=== PATIENT | male | born 1995 | race Hispanic/Latino ===

== ENCOUNTER 2018-07-24 22:19 | Emergency (ER) | payer SELFPAY ==
[2018-07-24] MEDS ORDERED: Sodium Chloride 0.9% 1,000 ML IV ONE (22:49)
[2018-07-24] MEDS ORDERED: Sodium Chloride 0.9% 1,000 ML ONE (23:22)
[2018-07-24 23:25] LABS: BASO % 0.1 % (0.0-2.0); EOS % 0.2 % (0.0-4.0); HEMOGLOBIN 16.7 g/dL (12.0-18.0); LYMPH # 0.6 K/uL (1.0-4.3); LYMPH % 4.7 % (20.0-40.0); MEAN CELL VOLUME 91.1 fL (80.0-94.0); MEAN CORPUSCULAR HEMOGLOBIN 30.6 pg (27.0-31.0); MEAN CORPUSCULAR HGB CONC 33.6 g/dL (33.0-37.0); MEAN PLATELET VOLUME 8.8 fL (7.2-11.7); MONO # 0.6 K/uL (0.0-0.8); MONO % 5.2 % (0.0-10.0); NEUT # 11.1 K/uL (1.8-7.0); NEUT % 89.8 % (50.0-75.0); PLATELET COUNT 217 K/uL (130-400); RBC 5.47 Mil/uL (4.40-5.90); RED CELL DISTRIBUTION WIDTH 13.8 % (11.5-14.5); WHITE BLOOD COUNT 12.4 K/uL (4.8-10.8)
[2018-07-24 23:36] LABS: ALBUMIN 5.1 g/dL (3.5-5.0); ALT/SGPT 31 U/L (21-72); AST/SGOT 26 U/L (17-59); BLOOD UREA NITROGEN 19 mg/dL (9-20); CALCIUM 9.5 mg/dl (8.6-10.4); GFR NON-AFRICAN AMERICAN > 60; LIPASE 68 U/L (23-300)
[2018-07-24 23:52] LABS: BANDS 4 % (0-2); LYMPHOCYTE 9 % (20-40); MONOCYTE 3 % (0-10); NEUTROPHIL 84 % (50-75); TOTAL CELLS COUNTED 100
[2018-07-24 23:53] LABS: PLATELET ESTIMATE NORMAL (NORMAL)
[2018-07-25 00:39] VITALS: BP 111/71; PULSE 103; RESP 20; TEMP 99.8; O2SAT 97
--- NOTE | 2018-07-25 00:54 | C.PDOC ---
History Of Present Illness 23 year old male presents to the ER with a complaint of several episodes of watery stools and vomiting since this morning. Patient states he was on a keto diet for a week and stopped 2 days ago, he had a large fierro meal at a [employer] restaurant and woke up with the symptoms. Patient reports now feeling weak and lightheaded. Denies fever, sick contact, or recent travel. Time Seen by Provider: 07/24/18 22:47 Chief Complaint (Nursing): Abdominal Pain History Per: Patient History/Exam Limitations: no limitations Onset/Duration Of Symptoms: Hrs Current Symptoms Are (Timing): Still Present Radiation Of Pain To:: None Quality Of Discomfort: Unable To Describe Associated Symptoms: Vomiting, Diarrhea, Other (Weak, Lightheaded). denies: Fever Exacerbating Factors: None Alleviating Factors: None Recent travel outside of the [place]: No Past Medical History Reviewed: Historical Data, Nursing Documentation, Vital Signs Vital Signs: Last Vital Signs Temp 99.8 F H 07/25/18 00:38 Pulse 103 H 07/25/18 00:38 Resp 20 07/25/18 00:38 BP 111/71 07/25/18 00:38 Pulse Ox 97 07/25/18 00:38 Family History: States: Unknown Family Hx - Social History Hx Alcohol Use: Yes Hx Substance Use: No Review Of Systems Constitutional: Positive for: Weakness. Negative for: Fever Cardiovascular: Positive for: Light Headedness Respiratory: Negative for: Cough Gastrointestinal: Positive for: Vomiting, Diarrhea Physical Exam - Physical Exam Appears: Non-toxic Skin: Pale Head: Atraumatic, Normacephalic Eye(s): bilateral: Normal Inspection Oral Mucosa: Moist Neck: Normal, Supple Chest: Symmetrical, No Tenderness Cardiovascular: Rhythm Regular (Tachycardic) Respiratory: Normal Breath Sounds, No Rales, No Rhonchi, No Wheezing Gastrointestinal/Abdominal: Soft, No Tenderness, No Distention, No Guarding, No Rebound Neurological/Psych: Oriented x3, Normal Speech ED Course And Treatment - Laboratory Results Result Diagrams: 07/24/18 23:22 07/24/18 23:22 Lab Results: Total Bilirubin 1.2 mg/dL (0.2-1.3) 07/24/18 23:22 AST 26 U/L (17-59) 07/24/18 23:22 ALT 31 U/L (21-72) 07/24/18 23:22 Alkaline Phosphatase 70 U/L (38-126) 07/24/18 23:22 Total Protein 7.5 g/dL (6.3-8.3) 07/24/18 23:22 Albumin 5.1 g/dL (3.5-5.0) H 07/24/18 23:22 Globulin 2.5 gm/dL (2.2-3.9) 07/24/18 23:22 Albumin/Globulin Ratio 2.0 (1.0-2.1) 07/24/18 23:22 Lipase 68 U/L (23-300) 07/24/18 23:22 O2 Sat by Pulse Oximetry: 97 (Room air) Pulse Ox Interpretation: Normal Progress Note: Blood work ordered, results were negative. IV fluids and zofran administered. On reevaluation, patient is resting comfortably in the ER in no acute distress, tolerating PO, vitals are stable, will discharge home with Rx and instructions to follow up with PMD. Disposition Counseled Patient/Family Regarding: Diagnosis, Need For Followup - Disposition Disposition: HOME/ ROUTINE Disposition Time: 00:52 Condition: STABLE Additional Instructions: Increase PO fluids Take zofran for nausra or vomitingBRAT diet( white bread, rice, bananas, apple, apple sauce, soup, broth , tea, jello) Take medications as directed Return to ER if high fever, severe pain, persistent vomiting, bloody stools or worse Prescriptions: Ondansetron ODT [Zofran ODT] 1 odt PO BID PRN #6 odt PRN Reason: Nausea/Vomiting Instructions: Gastritis (DC) Forms: [employer] ([place]) - Clinical Impression Clinical Impression: Gastroenteritis - PA / COMPENSATION DIRECTOR / Resident Statement MD/DO has reviewed & agrees with the documentation as recorded. - Scribe Statement The provider has reviewed the documentation as recorded by the Scribdario Coreas All medical record entries made by the Scribe were at my direction and personally dictated by me. I have reviewed the chart and agree that the record accurately reflects my personal performance of the history, physical exam, medical decision making, and the department course for this patient. I have also personally directed, reviewed, and agree with the discharge instructions and disposition.
== END 2018-07-25 01:05 | disposition home or self-care (01) ==
LOC: C.ER 22:19
DX: K52.9 Noninfective gastroenteritis and colitis, unspecified (principal)
CPT/HCPCS: 80053; 83690; 85025; 96361; 96374; 99284; J2405; J7030